=== PATIENT | male | born 1950 | race Caucasian/White ===

== ENCOUNTER 2019-03-07 09:40 | Day surgery (SDC) | payer MEDICARE, BC, SELFPAY ==
--- NOTE | 2019-03-06 20:07 | PM.PREOP ---
Pre-operative Note Interval Note History & Physical reviewed/Exam performed by Physician: Yes Changes to H&P: No
--- NOTE | 2019-03-07 09:33 | PM.OP.1 ---
Operative Date/Time/Diagnoses Date of procedure: 03/07/19 Time of procedure: 11:45 Procedure & Clinicians Procedure: Preoperative diagnoses: 1. Left nuclear sclerotic and cortical cataract. 2. Previous LASIK. Postoperative diagnoses: 1. Cataract removed by phacoemulsification with placement of posterior chamber intraocular lens. Procedure: Phacoemulsification with posterior chamber intraocular lens implant Surgeon: Bianca Gimenez MD Complications: None Specimen: None Implant: ZCBOO +22.0 Blood loss: None Anesthesia: Retrobulbar with monitored standby Description of procedure: Patient presents with a complaint of decreased vision due to cataract which is affecting activities of daily living. The patient wants surgery to improve vision. The patient was taken to the operating room and given IV sedation. A retrobulbar block consisting of 6 cc of 2% xylocaine without epinephrine mixed half and half with 0.5% Marcaine with 1 cc of hyaluronidase added is placed between the medial and lateral 1/3 of the inferior orbital rim. Lid akinesia is obtain with 1% xylocaine with epinephrine infiltrated along the lid margin. The eye is manually massaged for 30 sec, prepped using Betadine solution, and draped in the usual sterile fashion. Temporal approach was made, a 1 mm side-port incision was made 90? from the proposed clear corneal incision position. Phenylephrine 1.5% mixed with 1% xylocaine 0.2 cc was placed into the anterior chamber. Viscoat followed by Romulo was then placed. A 2.6 mm clear incision with a 2.6 mm blade was placed. A 360 degree capsulorrhexis style capsulotomy was then performed with a cystitome needle on a Healon. Hydrodelineation and hydrodissection were performed. The phacoemulsification unit is introduced, and sculpting notice used to groove the central lens. It is then removed in chopping mode. Epi nucleus is removed with epinuclear mode and irrigation aspiration was used to remove the peripheral cortex. The posterior capsule is polished. The intraocular lens is selected, inspected, power confirmed, and placed in the posterior chamber. The pupil was constricted with Miostat.. The wound was stromally hydrated and tested for leaks, there was none and it was left sutureless. Vigamox 0.1 cc was placed into the anterior chamber. Kenalog 0.2 cc was placed in the superior subconjunctival space. A drop of antibiotic and was placed and the eye was patched and shielded. The patient was stable and returned to the recovery room in excellent condition. Dictated by: Bianca Gimenez MD Copy to: [facility]
[2019-03-07 10:15] VITALS: BMI 29.4
[2019-03-07 10:19] VITALS: BP 133/76; PULSE 70; RESP 16; TEMP 36.8; O2SAT 99
[2019-03-07] MEDS: PROPARACAINE 0.5% OPHTH SOL 2 DROPS EYE-OP (10:23)
[2019-03-07] MEDS: CATARACT EYE COMPOUND (10 DROPS/SYRINGE) 3 DROPS EYE-OP (10:25)
--- NOTE | 2019-03-07 11:52 | SUR.OPER ---
Supine on eye stretcher, head on extension cradle secured with tape. Arms tucked at sides with blanket. Pillow under knees.
[2019-03-07] MEDS: PHENYLEPHRINE/LIDOCAINE VIAL (OR) 0.2 ML EYE-OP (11:56)
[2019-03-07] MEDS: MOXIFLOXACIN OPHTH DROPS 3 ML BOTTLE 2 DROPS INJ (11:56)
[2019-03-07] MEDS: TRIAMCINOLONE 50 MG/5 ML VIAL INJ (11:56)
[2019-03-07] MEDS: NEOMYCIN/POLY/DEX OPHTH OINT 1 APPLIC EYE-LEFT (11:57)
[2019-03-07] MEDS: CARBACHOL 1.5 ML VIAL INJ (11:57)
[2019-03-07] MEDS: BALANCED SALT IRRIG SOLN NO.2 15 ML IRR (11:57)
[2019-03-07] MEDS: HYALURONATE SODIUM 10 MG/ML SYRINGE INJ (11:57)
[2019-03-07] MEDS: OFLOXACIN 0.3% OPHTH 5 ML 2 DROPS EYE-LEFT (11:58)
[2019-03-07] MEDS: BALANCED SALT IRRIG SOLN NO.2 500 ML, EPINEPHrine 1 MG IRR (11:58)
[2019-03-07] MEDS: LIDOCAINE 1% W/EPI INJ 20 ML INJ (11:59)
[2019-03-07] MEDS: CHONDROIDTIN/SOD HYALURONATE 1.05 ML SYRINGE INTRAOCULA (11:59)
[2019-03-07] MEDS: LIDOCAINE 2% 4 ML, BUPIVACAINE 0.5% (PF) 4 ML, HYALURONIDASE 150 UNIT INJ (12:00)
[2019-03-07 12:25] VITALS: BP 115/73; PULSE 52; RESP 15; TEMP 36.6; O2SAT 100
[2019-03-07 12:40] VITALS: BP 143/88; PULSE 56; RESP 16; O2SAT 99
--- NOTE | 2019-03-07 12:57 | SUR.PHASEII ---
Pt states he is waiting on a ride and she will be here in a few minutes and he is having a cup of coffee and waiting on a ride.
[2019-03-07 13:15] VITALS: BP 147/78; PULSE 54; RESP 16; TEMP 36.2; O2SAT 98
--- NOTE | 2019-03-07 13:18 | SUR.PHASEII ---
Ride arruved, pt left unit in stable condition.
== END 2019-03-07 13:17 | disposition home or self-care (01) ==
LOC: OR 09:43
PROVIDERS: PCP Orthopaedic Surgery; Visit Provider Ophthalmology
PROC: (CPT 66984; principal; 2019-03-07 11:45)
DX: H25.812 Combined forms of age-related cataract, left eye (principal); I10 Essential (primary) hypertension
CPT/HCPCS: 66984; J0171; J2250; J2704; J3010; J3301; J3470

== ENCOUNTER → 2021-08-24 08:22 | Outpatient (CLI) | payer OTHER, SELFPAY ==
--- NOTE | 2021-08-24 08:28 | DI.RAD.S_ITS ---
PROCEDURE: XR CERVICAL SPINE 4V OR 5V INDICATIONS: NECK PAIN TECHNIQUE: 5 views of the cervical spine acquired. COMPARISON: [facility], RG, XR C-SPINE 4-6V, 09/03/2016, 11:03. FINDINGS: Bones: No fractures or dislocations to the C7-T1 level. Oblique images demonstrate no bony foraminal stenoses. Multilevel disc space narrowing is present. Anterior osteophytes are present, most notable at C5, C6. Multilevel uncovertebral hypertrophy. Severe right foraminal narrowing is present at C2-3, C3-4, moderate C4-5. Soft tissues: No prevertebral soft tissue swelling. IMPRESSION: Multilevel degenerative changes, including disc and foraminal narrowing. Dictated by: Binta Bergman M.D. on 08/24/2021 at 11:50 Approved by: Binta Bergman M.D. on 08/24/2021 at 11:53
== END ==
PROVIDERS: PCP Student in an Organized Health Care Education/Training Program; Referring Provider Physical Medicine & Rehabilitation; Visit Provider Physical Medicine & Rehabilitation
DX: M47.812 Spondylosis without myelopathy or radiculopathy, cervical region (principal); M48.02 Spinal stenosis, cervical region; M50.20 Other cervical disc displacement, unspecified cervical region
CPT/HCPCS: 72050; 99214

== ENCOUNTER → 2021-09-10 09:08 | Outpatient (CLI) | payer OTHER, SELFPAY ==
--- NOTE | 2021-09-10 09:09 | DI.MRI.S_ITS ---
PROCEDURE: MR CERVICAL SPINE WO CON INDICATIONS: Cervical facet arthropathy TECHNIQUE: Noncontrast sagittal T1 spin echo and T2 fast spin echo, sagittal STIR, foraminal oblique sagittal T2 fast spin echo, and axial gradient echo or T2 fast spin echo through the cervical spine. COMPARISON: Outside Facility, RG, XR C-SPINE 4-6V, 09/03/2016, 11:03. [facility], CR, XR CERVICAL SPINE 4V OR 5V, 08/24/2021, 8:27. FINDINGS: Image quality: Excellent. Alignment and Curvature: There is normal bony alignment. Bone Marrow: Modic type 2 reactive endplate changes noted adjacent to the C3-C4, C5-C6 and C6-C7 discs. Spinal Cord: Visualized spinal cord has normal size and signal. No cerebellar tonsillar herniation. Paraspinous Soft Tissues: No paravertebral masses. Prevertebral soft tissues are normal in thickness. C2-C3: Loss of disc signal and height. Mild right and moderate left facet hypertrophy. Mild narrowing of the central canal. Mild left neural foraminal narrowing. No neural compression. C3-C4: Loss of disc signal and slight loss of disc height. Mild right and moderate left facet hypertrophy. Mild bilateral uncovertebral joint hypertrophy. Mild narrowing of the central canal. Moderate right and severe left neural foraminal narrowing with compression of the exiting left C4 nerve root. C4-C5: Loss of disc signal. Mild, diffuse disc bulge. Mild right and severe left facet hypertrophy. Mild bilateral uncovertebral joint hypertrophy. Moderate right and moderate to severe left neural foraminal narrowing. No neural compression. C5-C6: Loss of disc signal and height. Moderate, diffuse disc bulge. Small central disc protrusion. Mild bilateral facet hypertrophy. Severe right and mild left uncovertebral joint hypertrophy. Moderate narrowing of the central canal. Moderate bilateral neural foraminal narrowing. No neural compression. C6-C7: Loss of disc signal and height. Moderate, diffuse disc bulge. Mild bilateral facet hypertrophy. Mild bilateral uncovertebral joint hypertrophy. Moderate narrowing of the central canal. Mild right and moderate left neural foraminal narrowing. No neural compression. C7-T1: Loss of disc signal. Mild, diffuse disc bulge. No central stenosis. No neural foraminal narrowing. No neural compression. IMPRESSION: 1. Multilevel degenerative disc disease. 2. Multilevel facet and uncovertebral arthropathy. Lola F 3. No severe central canal narrowing. 4. Severe left C3-C4 neural foraminal narrowing with compression of the exiting left C4 nerve root. Dictated by: Mary Ann Bowers MD, PhD on 09/10/2021 at 10:31 Approved by: Mary Ann Bowers MD, PhD on 09/10/2021 at 11:04
== END ==
PROVIDERS: PCP Family Medicine; Referring Provider Physical Medicine & Rehabilitation; Visit Provider Physical Medicine & Rehabilitation
DX: M50.321 Other cervical disc degeneration at C4-C5 level (principal); M47.812 Spondylosis without myelopathy or radiculopathy, cervical region; M48.02 Spinal stenosis, cervical region
CPT/HCPCS: 72141

== ENCOUNTER 2021-12-31 08:49 | Outpatient (CLI) | payer OTHER, SELFPAY ==
[2021-12-31] VITALS (9 sets, daily range): BP systolic 120–143; BP diastolic 62–78; PULSE 19–70; RESP 14–20; TEMP 36.3; O2SAT 97–100
--- NOTE | 2021-12-31 08:51 | DI.RAD.S_ITS ---
PROCEDURE: PAIN C/T FACET INJ/BLK 1ST L INDICATIONS: Stenosis COMPARISON: [facility], CR, XR CERVICAL SPINE 4V OR 5V, 08/24/2021, 8:27. [facility], MR, MR CERVICAL SPINE WO CON, 09/10/2021, 9:14. FINDINGS: Fluoroscopic spot filming was performed to verify placement of spinal needles on the right at the C4-C5, C5-C6, and C6-C7 levels, as labeled on the films. Appropriate location of the needle tips was confirmed by injection of iodinated contrast. IMPRESSION: Intraprocedural examination demonstrating appropriate positions of the needles. Dictated by: Lauro Bosch M.D. on 12/31/2021 at 11:38 Approved by: Lauro Bosch M.D. on 12/31/2021 at 11:38
[2021-12-31] MEDS: MIDAZOLAM 2 MG/2 ML VIAL IV (10:27)
[2021-12-31] MEDS: IOPAMIDOL 15 ML VIAL 3 ML INJ (10:33)
[2021-12-31] MEDS: BUPIVACAINE 0.5% (PF) VIAL 2 ML INJ (10:33)
[2021-12-31] MEDS: DEXAMETHASONE 10 MG/ML VIAL 30 MG INJ (10:34)
--- NOTE | 2021-12-31 10:48 | P.PCN_ITS ---
Date/Time/Diagnoses Date of procedure: 12/31/21 Time of procedure: 10:48 Pre-procedure diagnosis: 1. FACET ARTHROPATHY 2. AXIAL NECK PAIN Post-procedure diagnosis: same Procedure Notes Procedure: 1. FLUOROSCOPICALLY GUIDED, CONTRAST-CONTROLLED RIGHT C4/5, C5/6 AND C6/7 FACET JOINT INJECTIONS WITH CONSCIOUS SEDATION. Indications: Jayson is referred by Dr. Merritt for treatment of Axial Neck Pain Physician: Gaudencio Silver Total Fluoroscopy time (seconds): 13 Total sedation minutes: 16 Complications: none Procedure in detail & Post-procedure care: DESCRIPTION OF PROCEDURE Fluoroscopically guided, contrast-controlled right C4/5, C5/6 and C6/7 facet joint injections with conscious sedation. Following review of allergy and review of potential side effects and complications, including, but not necessarily limited to, infection, allergic reaction, local tissue breakdown, stroke, temporary or permanent nerve injury and paralysis, the patient indicated that the patient understood and agreed to proceed. An informed consent document was signed by the patient, witnessed by a nurse, and placed in the patient's chart. Additionally, other treatment options including medications, modalities, and physical therapy were reviewed with the patient. After review of previous anaesthesic history and IV conscious sedation the patient was deemed safe to proceed with today?s procedure with IV conscious david tion as ASA class II designation. Safety time-out was performed to confirm patient ID, procedure to be performed and site of procedure. IV sedation was accomplished with a combination of 2mg of Versed was administered by the RN after DO order, titrated to patient comfort during the course of the procedure while the patient remained responsive to all verbal commands In the prone position, following sterile prep and drape of the cervical spine region, the posterior aspect of the right C4/5, C5/6 and C6/7 facet joints were identified fluoroscopically. The skin was anesthetized via a 25-gauge 1.5-inch needle with 1% lidocaine solution into the corresponding facet joints. At this point, a 25-gauge 2.5-inch spinal needle was atraumatically introduced and advanced under fluoroscopic guidance into the corresponding facet joints. Following negative aspiration, injections of approximately 0.2-cc of Isovue 200 confirmed interarticular placement without vascular uptake. At this point, a total of 1cc including 0.5cc or 5mg of dexamethasone combined with 0.5cc of 1% lidocaine solution was injected without complication into each of the corresponding facet joints. The procedure tolerated the procedure well without signs or symptoms of complications prior to transfer to the recovery area continued monitoring without incident. The patient was then transferred to the recovery area where they were observed for an appropriate period of time after the injection. The patient reported a VAS score of 7 prior to the procedure and a post- procedure VAS of 0. POST OP INSTRUCTIONS They were provided a Pain Log to continue to record their response to the target-specific procedure prior to their follow-up visit with their referring physician. Additionally, specific post-injection care instructions and a contact number to our office were provided if concerns arise regarding possible complications associated with the procedure are suspected.
== END 2021-12-31 11:09 | disposition home or self-care (01) ==
LOC: RAD 08:51
PROVIDERS: PCP Family Medicine; Referring Provider Physical Medicine & Rehabilitation; Visit Provider Physical Medicine & Rehabilitation
DX: M47.812 Spondylosis without myelopathy or radiculopathy, cervical region (principal)
CPT/HCPCS: 64490; 64491; 64492; 99152; J1100; J2250

== ENCOUNTER → 2025-01-21 10:07 | Outpatient (CLI) | payer OTHER, SELFPAY ==
--- NOTE | 2025-01-21 10:13 | DI.RAD.S_ITS ---
PROCEDURE: XR KNEE LT 3V INDICATIONS: LEFT KNEE PAIN TECHNIQUE: 3 views of the knee were acquired. COMPARISON: None. FINDINGS: Bones: No acute fracture or dislocation. Enthesophyte formation involving medial femoral condyle near MCL insertion suggestive of chronic avulsion injury. Moderate tricompartmental osteoarthritis more notably in medial femoral tibial compartment. No significant patellar subluxation. No suspicious bony lesions. Soft tissues: Moderate joint effusion. No suspicious soft tissue calcifications. IMPRESSION: No acute left knee fracture or dislocation. Moderate joint effusion and moderate tricompartmental osteoarthritis as above. Dictated by: Amari Haddad M.D. on 01/21/2025 at 10:33 Approved by: Amari Haddad M.D. on 01/21/2025 at 10:34
== END ==
PROVIDERS: PCP Family Medicine; Referring Provider Physical Medicine & Rehabilitation; Visit Provider Physical Medicine & Rehabilitation
DX: M17.12 Unilateral primary osteoarthritis, left knee (principal); M25.562 Pain in left knee; M25.462 Effusion, left knee; M47.812 Spondylosis without myelopathy or radiculopathy, cervical region; M70.61 Trochanteric bursitis, right hip; M50.20 Other cervical disc displacement, unspecified cervical region
CPT/HCPCS: 73562; 99214